=== PATIENT | male | born 1940 | race Caucasian/White ===

== ENCOUNTER 2017-05-21 11:13 | Emergency (ER) | payer MEDICARE ==
[2017-05-21 11:48] LABS: BASOPHILS % (AUTO) 0.8 % (0.0-5.0); EOSINOPHILS % (AUTO) 0.5 % (0.0-8.0); HEMATOCRIT 45.3 % (42-54); LYMPHOCYTES % (AUTO) 17.2 % (21.0-51.0); MEAN CORPUSCULAR HEMOGLOBIN 32.5 pg (27.0-33.0); MEAN CORPUSCULAR HGB CONC 34.8 g/dL (32.0-36.0); MEAN CORPUSCULAR VOLUME 93.6 fL (79-99); MONOCYTES % (AUTO) 12.2 % (3.0-13.0); NEUTROPHILS % (AUTO) 69.3 % (40.0-77.0); PLATELET COUNT (AUTO) 224 K/uL (130-400); RED BLOOD CELL COUNT(AUTO) 4.84 MIL/uL (4.50-6.20); RED CELL DISTRIBUTION WIDTH 12.3 % (11.0-15.5)
[2017-05-21 11:57] LABS: INR 0.94 (0.85-1.15); PARTIAL THROMBOPLASTIN TIME 26.6 SEC (26.3-35.5); PROTHROMBIN TIME 9.9 SEC (9.6-11.6)
[2017-05-21 12:01] LABS: POTASSIUM 4.2 mmol/L (3.5-5.1)
[2017-05-21 12:05] LABS: ALBUMIN 4.6 g/dL (3.5-5.0); BILIRUBIN,TOTAL 0.9 mg/dL (0.2-1.0); MAGNESIUM 2.1 mg/dL (1.80-2.40)
[2017-05-21 12:11] LABS: B-TYPE NATRIURETIC PEPTIDE 113 pg/mL (0-100)
[2017-05-21 12:27] LABS: RAPID GROUP A STREP NEGATIVE (NEGATIVE)
[2017-05-21 12:45] LABS: APPEARANCE,URINE CLEAR (CLEAR); BILIRUBIN,URINE NEGATIVE (NEGATIVE); COLOR,URINE YELLOW (YELLOW); GLUCOSE, URINE (UA) NEGATIVE (NEGATIVE); KETONES,URINE NEGATIVE (NEGATIVE); LEUKOCYTE ESTERASE ,URINE NEGATIVE (NEGATIVE); NITRATE,URINE NEGATIVE (NEGATIVE); OCCULT BLOOD,URINE NEGATIVE (NEGATIVE); PROTEIN,URINE NEGATIVE (NEGATIVE); UROBILINOGEN,URINE 0.2 mg/dL (0.2-1.0)
== END 2017-05-21 14:05 | disposition home or self-care (01) ==
LOC: EDH 11:13
DX: R00.2 Palpitations (principal); K85.90 Acute pancreatitis without necrosis or infection, unspecified; I49.3 Ventricular premature depolarization; I25.10 Atherosclerotic heart disease of native coronary artery without angina pectoris; E78.5 Hyperlipidemia, unspecified; I10 Essential (primary) hypertension; Z95.1 Presence of aortocoronary bypass graft; Z98.890 Other specified postprocedural states; Z79.899 Other long term (current) drug therapy
CPT/HCPCS: 36415; 71045; 80053; 81003; 83605; 83690; 83735; 83880; 84484; 85025; 85610; 85730; 87804; 87880; 93005